=== PATIENT | male | born 1990 | race Caucasian/White ===

== ENCOUNTER 2020-10-14 11:06 | Emergency (ER) | payer OTHER | END 2020-10-14 12:37 | disposition home or self-care (01) | LOC: JVIRT 11:06 | DX: U07.1 COVID-19 (principal) | CPT/HCPCS: C9803; G2012-GT; U0003 ==

== ENCOUNTER 2020-10-24 15:34 | Emergency (ER) | payer OTHER | END 2020-10-24 18:41 | disposition home or self-care (01) | LOC: JVIRT 15:34 | DX: Z20.828 Contact with and (suspected) exposure to other viral communicable diseases (principal) | CPT/HCPCS: C9803; G2012-GT; U0003 ==